=== PATIENT | female | born 1945 | race Caucasian/White ===

== ENCOUNTER 2022-01-01 13:54 | Emergency (ER) | payer MEDICARE | END 2022-01-01 18:32 | disposition home or self-care (01) | LOC: ER1 13:54 | DX: S00.33XA Contusion of nose, initial encounter (principal); R51.9 Headache, unspecified; I10 Essential (primary) hypertension; W18.30XA Fall on same level, unspecified, initial encounter | CPT/HCPCS: 70450; 72125; 99283 ==